=== PATIENT | female | born 1980 | race Caucasian/White ===

== ENCOUNTER 2018-10-26 17:41 | Emergency (ER) | payer MEDICAID ==
[~2018-10-26] VITALS: Ht 165.1 cm; Wt 52.3 kg
[2018-10-26 18:05] VITALS: Ht 165.1 cm; Wt 52.3 kg
[2018-10-26] MEDS ORDERED: LEXAPRO20 MG PO (18:06)
[2018-10-26] MEDS ORDERED: AMITRIPTYLINE H50 MG PO (18:06)
[2018-10-26] MEDS ORDERED: PHENERGAN DM SYR5 ML PO (20:36)
[2018-10-26] MEDS ORDERED: VIBRAMYCIN 100100 MG PO (20:36)
[2018-10-26 20:53] VITALS: BP 128/75
== END 2018-10-26 20:54 | disposition home or self-care (01) ==
LOC: D.ER 17:41
DX: J06.9 Acute upper respiratory infection, unspecified (principal); J40 Bronchitis, not specified as acute or chronic; R09.89 Other specified symptoms and signs involving the circulatory and respiratory systems; F17.200 Nicotine dependence, unspecified, uncomplicated